=== PATIENT | female | born 1945 | race Caucasian/White ===

== ENCOUNTER 2019-01-17 19:44 | Inpatient (IN) ==
[2019-01-17 21:02] LABS: BASO% 0.6 % (0.0-0.8); HEMATOCRIT 35.2 % (37.0-47.0); HEMOGLOBIN 11.8 g/dL (12.0-16.0); IMM GRAN% 0.3 % (0.0-0.5); LYMPH# 1.87 X1000 (1.2-3.4); LYMPH% 27.3 % (20.5-51.1); MCH 27.8 PG (27-31); MCHC 33.5 g/dL (33-37); MONO# 0.65 X1000 (0.11-0.59); MONO% 9.5 % (1.7-9.3); MPV 8.6 FL (7.4-10.4); NEUT# 4.13 X1000 (1.4-6.5); NEUT% 60.3 % (42.2-75.2); PLT 286 X1000 (130-400); RBC 4.24 XMIL (4.2-5.4); WBC 6.85 X1000 (4.8-10.8)
[2019-01-17 21:03] LABS: BASO# 0.04 X1000 (0.0-0.2); EOS# 0.14 X1000 (0.0-0.7); IMM GRAN# 0.02 X1000 (0.0-0.04)
--- NOTE | 2019-01-17 21:29 | Diag Imaging Result Doc PS360 ---
EXAM: FLAT/UPRIGHT ABD/1 VIEW CHEST HISTORY: abd pain, NV TECHNIQUE: Flat and upright with chest, three views COMPARISON: Chest compared to 05/24/2018 FINDINGS: The lungs are well expanded. No pneumonia. No cardiomegaly. No free air beneath the diaphragm. No organomegaly. Aortic graft. No bowel obstruction. Degenerative bone spurring in the lumbar spine. IMPRESSION: No acute abnormality. Electronically signed by Martir Hernandez 01/17/2019 9:27 PM
[2019-01-17 21:31] LABS: ALBUMIN 4.3 g/dL (3.5-5.0); CALCIUM 8.8 mg/dL (8.8-10.2); CREATININE 2.6 mg/dL (0.5-0.9); POTASSIUM 4.8 mmol/L (3.5-5.1); TOTAL BILIRUBIN 0.24 mg/dL (0.20-1.00); TOTAL PROTEIN 6.6 g/dL (6.3-8.3)
[2019-01-17 21:32] LABS: ALB/GLOB RATIO 1.9; MAGNESIUM 1.5 mg/dL (1.5-2.7); PHOSPHORUS 4.1 mg/dL (2.7-4.5)
[2019-01-17 21:37] LABS: URINE SOURCE CLEAN CATCH
[2019-01-17 21:40] LABS: BILIRUBIN URINE NEGATIVE (NEGATIVE); BLOOD URINE NEGATIVE (NEGATIVE); COLOR YELLOW; GLUCOSE URINE NEGATIVE (NEGATIVE); KETONE URINE NEGATIVE (NEGATIVE); LEUKOCYTES URINE TRACE (NEGATIVE); NITRITE URINE NEGATIVE (NEGATIVE); PROTEIN URINE NEGATIVE (NEGATIVE); SP GRAVITY URINE 1.007; TURBIDITY URINE CLEAR (CLEAR); UROBILINOGEN URINE NORMAL (NORMAL)
[2019-01-17 21:41] LABS: UR EPITHELIAL CELLS <10 /HPF (<10); URINE BACTERIA NEGATIVE /HPF; URINE RBC <10 /HPF (<10); URINE WBC <10 /HPF (<10)
[2019-01-17] MEDS ORDERED: NS 1,000 ML IV ONE (22:35)
--- NOTE | 2019-01-17 22:40 | PROVIDER DOCUMENTATION ---
This chart was entered by Julieta Kang Scribe, acting as scribe for Wing Saunders CRNP. HPI-Abdominal Pain/GI Problem - General Chief Complaint: N/V/D Stated Complaint: BLOOD PRESSURE ISSUES Time Seen by Provider: 01/17/19 20:11 Source: patient Allergies/Adverse Reactions: Patient Allergies Allergy/AdvReac Type Severity Reaction Status Date / Time No Known Allergies Allergy Verified 01/17/19 21:57 Home Medications: Home Medication List Medication Instructions Recorded Confirmed Last Taken Type Fenofibrate 160 mg PO DAILY 01/18/16 05/19/18 Unknown History Hydrocodone Bit/Acetaminophen 1 each PO BID 01/18/16 05/19/18 Unknown History [Hydrocodon-Acetaminoph 7.5-325] ROSUVAstatin [Crestor] 20 mg PO DAILY 01/18/16 05/19/18 Unknown History Calcium Carbonate [Caltrate 600] 600 mg PO BID tablet 07/12/17 05/19/1805/18 Rx Ipratropium/Albuterol Sulfate 4 gm IH BID 05/19/18 05/19/18 05/18/18 History [Combivent Respimat 20-100 Mcg] Magnesium Oxide [Magnesium] 800 mg PO BID 05/19/18 05/19/18 05/18/18 History Alprazolam [Xanax] 0.25 mg PO Q6H PRN PRN 10 Days #20 05/24/18 Unknown Rx tab Amlodipine [Norvasc] 5 mg PO BID 30 Days #60 tab 05/24/18 Unknown Rx Aspirin 81 mg PO QAM chewtab 05/24/18 Unknown Rx Furosemide [Lasix] 80 mg PO BID 30 Days #60 tab 05/24/18 Unknown Rx Hydralazine [Apresoline] 50 mg PO TID 30 Days #90 tab 05/24/18 Unknown Rx Isosorbide Dinitrate [Isordil] 20 mg PO TID 30 Days #90 tab 05/24/18 Unknown Rx Labetalol [Trandate] 300 mg PO Q12H 30 Days #60 tab 05/24/18 Unknown Rx Pantoprazole Sodium [Protonix] 40 mg PO BID 30 Days #60 tablet. 05/24/18 U nknown Rx Promethazine [Phenergan] 12.5 mg [place] Q6H PRN PRN 10 Days #40 05/24/18 Unknown Rx supp Sucralfate [Carafate] 1 gm PO 4XDAY 30 Days #120 tab 05/24/18 Unknown Rx Hydrocodone/APAP 7.5 mg/325 mg 1 ea PO Q6H PRN PRN #14 tab 09/09/18 Unknown Rx [[place]-7.5] - History of Present Illness-ABD Nature of Presenting Problems: pt is 73/F presenting to ED w/ n/v w/ abd pain that has been frequent for the last 8 months. Pt sts that she lost her then and it has worsened since. She has had her BP medication upped as well recently and her PCP has taken her off of her PPI medications. Abdominal Pain Onset Location: reports: epigastric Pain Radiation: reports: no radiation Quality of Pain: reports: burning Severity in ED: reports: moderate Onset/Duration: reports: gradual Timing: reports: still present Activities at Onset: reports: none Exposure to sick contacts?: No Modifying Factors: improves with: nothing Associated Symptoms: reports: heartburn, nausea, vomiting Last BM: unsure Dark Stools Present?: reports: none noticed Rectal Bleeding: reports: none Rectal Pain: reports: none Emesis Description: reports: none Bruising or Bleeding Gums?: No Similar Symptoms Previously?: No Recently seen or treated by another doctor?: No Review of Systems - Adult - REVIEW OF SYSTEMS - ADULT Constitutional: reports: no symptoms reported. denies: chills, fever Eyes: reports: no symptoms reported Ears, Nose, Mouth & Throat: reports: no symptoms reported Cardiovascular: reports: no symptoms reported Respiratory: reports: no symptoms reported Gastrointestinal: reports: abdominal pain, nausea, vomiting. denies: diarrhea Genitourinary: reports: no symptoms reported Musculoskeletal: reports: no symptoms reported Integumentary: reports: no symptoms reported Neurological: reports: no symptoms reported. denies: dizziness/vertigo, headache/migraines Psychiatric: reports: no symptoms reported Endocrine: reports: no symptoms reported Hematologic/Lymphatic: reports: no symptoms reported Allergic/Immunologic: reports: no symptoms reported All Other Systems: Reviewed and Negative Past History - Adult - PAST MEDICAL HISTORY-ADULT Review of Records: reports: Old Records Reviewed, Nursing Assessment Review, Medications Reviewed, Social history reviewed & non-contributory. Major Childhood Illnesses: reports: denies history Cardiovascular: reports: HTN, hyperlipidemia Respiratory: reports: asthma Gastrointestinal: reports: denies history Obstetrical/Gynecological: reports: denies history Genitourinary: reports: denies history Musculoskeletal: reports: denies history Neurological: reports: denies history Psychiatric: reports: denies history Endocrine/Immune: reports: denies history Other Conditions: reports: denies history - PRIOR SURGERIES/PROCEDURES Surgical/Procedure History: reports: appendectomy, cholecystectomy, hysterectomy , orthopedic (extremity), other (AAA repair) - IMMUNIZATION STATUS Childhood Immunizations: See Nurse Assessment Flu Vaccine: See Nurse Assessment - FAMILY HISTORY Family History: reviewed, not pertinent - SOCIAL HISTORY Smoking: cigarettes, less than 1 pack/day Provider spent 3-5 mins advising pt. on dangers of tobacco.: Discussed manners to quit use, and f/u contacts for add'l counseling. Substance Use: none/never, none presently/history of abuse Alcohol Use Frequency: never Living Situation: family Physical Exam-General - PHYSICAL EXAM-ADULT Initial Vital Signs Reviewed: Yes - CONSTITUTIONAL General Appearance: appears well, alert, mild distress - EYES Eyes: PERRL/EOMI, pink conjunctivae - HEAD, EARS, NOSE, MOUTH & THROAT HENMT: normocephalic/atraumatic, moist mucous membranes, normal ENT inspection, TMs normal - NECK Neck: non-tender, full range of motion, supple, normal inspection - RESPIRATORY Respiratory: lungs clear - CARDIOVASCULAR Cardiovascular: regular rate, rhythm - GASTROINTESTINAL (ABDOMEN) Abdominal Exam: normal bowel sounds (Good bowel sounds), soft, tenderness (epigastric tenderness upon palpation) - MUSCULOSKELETAL Back Exam: normal inspection Extremity: normal range of motion, non-tender, normal gait, normal inspection - SKIN Integumentary: normal color, warm/dry - NEUROLOGIC Neurologic: grossly normal - PSYCHIATRIC Psych/Mental Status: normal mood/affect, normal thought content, normal thought process, oriented x 3 Progress - PLAN OF CARE/RESULTS Progress/Plan/Lab Results: Vital Signs - 8 hr 01/17/19 19:45 Temperature 97.8 F Pulse Rate 70 Respiratory Rate 16 Blood Pressure 142/78 O2 Sat by Pulse Oximetry 98 Orders Category Date Time Status flat [FLAT/UPRIGHT ABD/1 VIEW CHEST] [RAD] Stat Exams 01/17/19 20:34 Ordered CBC WITH ELECTRONIC DIFF [HEME] Stat Lab 01/17/19 20:34 Uncollected COMPREHENSIVE METABOLIC PANEL [CHEM] Stat Lab 01/17/19 20:34 Uncollected MAGNESIUM [CHEM] Stat Lab 01/17/19 20:34 Uncollected PHOSPHORUS [CHEM] Stat Lab 01/17/19 20:34 Uncollected UA NIMS W/REFLEX CULT [URINALYSIS] Stat Lab 01/17/19 20:35 Uncollected Result Diagrams: 01/17/19 20:52 01/17/19 20:52 - CONSULTS/PCP/HOSPITALIST Notification #1 *Consult/PCP/Hospitalist*: Dr Ch Time Discussed: 22:39 Reason/Comments: Dehydration, NVD Consult Disposition: Admit Departure - Departure Date of Disposition Decision: 01/17/19 Time of Disposition Decision: 22:40 DIAGNOSIS: Dehydration Nausea & vomiting Qualifiers: Vomiting type: unspecified Vomiting Intractability: unspecified Qualified Code(s): R11.2 - Nausea with vomiting, unspecified Disposition: ADMITTED INPATIENT 09 Certified Medical Emergency: Emergent Condition: Critical Referrals and Follow-Ups: Chavo Bliss MD [Primary Care Provider] - Discharge Education: Steps to Quit Smoking, Npax-or-Befz - Critical Care Note This patient required my direct & personal management of CC.: No Attestation - Physician/ BRANDON Attestation Patient care was provided by Advanced Practice Provider:: Yes Advanced Practice Provider:: Wing Saunders Advanced Practice Provider documentation review:: The Mid-level provider documentation, treatment plan and medical decision making was reviewed by the physician who agrees with all treatment and medical decision making by the P. The physician spent face to face time with patient:: No Advanced Practice Provider documentation review:: Supervising physician onsite and consulted in the evaluation and care of this patient. The physician did not have a face to face encounter with the patient. This chart was documented by the indicated scribe, (Julieta Kang Scribe) and accurately reflects the services I performed and decisions made by me, Wing Saunders CRNP, as attested by the provider's signature.
[2019-01-18] MEDS ORDERED: TYLENOL PO PRN (00:03)
[2019-01-18] MEDS ORDERED: ZOFRAN IV PRN (00:03)
[2019-01-18] MEDS: NS 1,000 ML IV SCH ×2 (00:52→15:31)
--- NOTE | 2019-01-18 02:34 | EKG Report ---
Test Performed on : 01/17/2019 10:28:47 PM Test Reason : cardiac history Blood Pressure : / mmHG Vent. Rate : 068 BPM Atrial Rate : 068 BPM P-R Int : 162 ms QRS Dur : 144 ms QT Int : 424 ms P-R-T Axes : 068 -39 033 degrees QTc Int : 450 ms Normal sinus rhythm. Left axis deviation Right bundle branch block Abnormal ECG When compared with ECG of 24-MAY-2018 07:08, No significant change was found Unconfirmed Result
[2019-01-18] MEDS ORDERED: G.I. COCKTAIL PO ONE ×2 (04:17→09:01)
[2019-01-18] MEDS: PRILOSEC PO SCH (06:07)
[2019-01-18 06:13] LABS: BASO# 0.04 X1000 (0.0-0.2); BASO% 0.5 % (0.0-0.8); EOS# 0.14 X1000 (0.0-0.7); EOS% 1.8 % (0.0-10.0); HEMATOCRIT 36.3 % (37.0-47.0); HEMOGLOBIN 12.1 g/dL (12.0-16.0); LYMPH# 1.26 X1000 (1.2-3.4); MCH 27.7 PG (27-31); MCHC 33.3 g/dL (33-37); MCV 83.1 FL (81-99); MONO# 0.42 X1000 (0.11-0.59); MONO% 5.3 % (1.7-9.3); NEUT# 6.03 X1000 (1.4-6.5); NEUT% 76.4 % (42.2-75.2); PLT 305 X1000 (130-400); RBC 4.37 XMIL (4.2-5.4); WBC 7.89 X1000 (4.8-10.8)
[2019-01-18 06:54] LABS: CALCIUM 9.2 mg/dL (8.8-10.2); CREATININE 1.9 mg/dL (0.5-0.9); MAGNESIUM 1.4 mg/dL (1.5-2.7); POTASSIUM 4.2 mmol/L (3.5-5.1)
--- NOTE | 2019-01-18 08:24 | HISTORY AND PHYSICAL ---
CHIEF COMPLAINT: Nausea, vomiting, diarrhea. HISTORY OF PRESENT ILLNESS: This is a 73-year-old female who comes in to the emergency room with nausea, vomiting and abdominal pain, has been frequent for the last 8 months. She stated the abdominal pain was a burning heartburn feeling but a gradual onset. Apparently she lost her in 05/2018 and states that it has been worse since that time. She also stated that her blood pressure has been increasing. Her PCP has increased her blood pressure medicine. Laboratory data was grossly normal in the ER. She will be admitted for further evaluation and treatment. PAST MEDICAL HISTORY: 1. Coronary artery disease, status post stenting. 2. Abdominal aortic aneurysm with an endograft. 3. CKD 3 with right renal atrophy, and I believe that she has solitary kidney function. 4. Hypertension. 5. Hyperlipidemia. PAST SURGICAL HISTORY: 1. Drug-eluting stent to the circumflex in 2008. 2. Hysterectomy. 3. Appendectomy. 4. Cholecystectomy. 5. AAA repair with endograft 2-1/2 years ago. SOCIAL HISTORY: in 05/2018. She is retired. One pack per day smoker for many years. No alcohol. No illicit drugs. FAMILY HISTORY: Denies any chronic family history and states there is no history of coronary artery disease in first degree relatives. ALLERGIES: No known drug allergies. HOME MEDICATIONS: Crestor 20 mg p.o. q.p.m., fenofibrate 160 mg p.o. daily, Combivent Respimat 20/100 mcg 4 g inhalation b.i.d., magnesium oxide 800 mg p.o. b.i.d., amlodipine 5 mg p.o. b.i.d., hydralazine 50 mg p.o. t.i.d., Isordil 20 mg p.o. t.i.d., [place] 7.5 one q.6 p.r.n., carvedilol 25 mg 1 p.o. b.i.d., clonidine 0.1 mg 1 p.o. b.i.d., Centrum Silver 1 p.o. daily, benazepril 20 mg 1 p.o. b.i.d., vitamin B12 1000 mcg 1 p.o. daily, Lasix 40 mg p.o. p.r.n. REVIEW OF SYSTEMS: A 14-point review of systems was conducted with the patient. Pertinent positives listed above in the HPI. All other systems reviewed and found to be negative. PHYSICAL EXAMINATION: VITAL SIGNS: Temperature 98, pulse 71, respirations 19, blood pressure 170/93, oxygen saturation 100% on room air. GENERAL: This is a 73-year-old female lying on the ER stretcher, answers all questions appropriately. She is alert and oriented x3, in no acute distress at this time. HEENT: Head is atraumatic and normocephalic. Pupils are equal, round and reactive to light. Extraocular eye movements intact. Sclerae anicteric. Conjunctivae is pink. Oral mucosa is dry. NECK: Supple. No JVD. No thyromegaly. Trachea is midline. No cervical lymphadenopathy. CARDIAC: S1 and S2 appreciated. No murmurs, rubs or gallops. LUNGS: Wheezing noted on expiratory. Mild crepitations noted in bilateral bases. No rhonchi. Symmetric rise and fall with respirations. ABDOMEN: Soft, nondistended. Diffusely tender. Bowel sounds present in all 4 quadrants and normoactive. No pulsatile mass. No organomegaly. EXTREMITIES: No clubbing or cyanosis. There is 1+ nonpitting edema to bilateral lower extremities. There are 2+ pedal pulses bilaterally. GENITOURINARY: No bladder distention. The patient voids. Otherwise deferred. NEUROLOGICAL: Alert and oriented x3. Cranial nerves II through XII grossly intact. DIAGNOSTIC DATA: EKG is normal sinus rhythm, left axis deviation, right bundle branch block, no changes from previous EKG. WBC is 6.85, hemoglobin 11.8, hematocrit 35.2, platelet count 286. Sodium is 141, potassium 4.8, chloride 114, carbon dioxide 15, BUN is 53, creatinine 0.6, glucose 82. Urine unremarkable. Abdominal x-ray with no acute abnormality. ASSESSMENT AND PLAN: 1. Nausea, vomiting and diarrhea. The patient has been suffering with this over the last 8 months since her . Could be stress related. We will give Zofran as needed for vomiting. Consult GI. 2. Abdominal pain. See above. We will give GI cocktail. 3. Hypertension. Continue the patient's home medication. 4. Acute kidney injury on chronic kidney disease stage 3. Gentle fluid hydration at 75 mL an hour. I believe she received a liter bolus in the emergency room. 5. History of coronary artery disease. Trend cardiac enzymes. I do not believe this is cardiac in nature but will monitor. Further recommendations based on the patient's clinical course. Dictated by KARIS Simpson for Pee Ch MD I have performed a face to face diagnostic evaluation. Labs/ Xrays- reviewed, Exam- Chest- clear, CV- regular. A/P- N/V/D- Abd Pain- Admit, supportive care, IV fluids, antiemetics, GI consult. Dr. Ch cc: KARIS Simpson MD [facility]
[2019-01-18] MEDS: ISORDIL PO SCH ×3 (08:31→20:23)
[2019-01-18] MEDS: NORVASC PO SCH ×2 (08:32→20:24)
[2019-01-18] MEDS: VITAMIN B-12 PO SCH (08:32)
[2019-01-18] MEDS: APRESOLINE PO SCH ×3 (08:32→20:24)
[2019-01-18] MEDS: COREG PO SCH ×2 (08:32→20:23)
[2019-01-18] MEDS: CATAPRES PO SCH ×2 (08:32→20:23)
[2019-01-18] MEDS: LOFIBRA PO SCH (08:32)
[2019-01-18] MEDS: CENTRUM SILVER PO SCH (08:32)
[2019-01-18] MEDS ORDERED: COMBIVENT RESPIMAT INHALER INH SCH (09:00)
[2019-01-18] MEDS ORDERED: LOTENSIN PO SCH (09:00)
[2019-01-18] MEDS ORDERED: MAG-OX PO SCH (09:00)
--- NOTE | 2019-01-18 10:50 | PROGRESS NOTE ---
DATE: 01/18/2019 SUBJECTIVE: The patient reports heartburn, and she requested another GI cocktail this morning. Since then, she is feeling fine. She is not having diarrhea. She is having abdominal pain on and off but mild abdominal pain. OBJECTIVE: Vital Signs: Temperature 98.3 degrees, heart rate 81, respiratory rate 18, blood pressure 123/94, O2 saturation 99% on room air. General: This is a 73-year-old female lying in bed, in no acute distress. Cardiovascular: S1 and S2 heard. No murmurs, gallops, or rubs. Regular rate and rhythm. Respiratory: Clear bilaterally to auscultation. No work of breathing or using accessory muscles. Abdomen: Soft, a little bit distended, but nontender to palpation. Bowel sounds present. No organomegaly. Extremities: No clubbing, cyanosis, or edema. Peripheral pulses present in both legs. Neurological: The patient is alert oriented x3. Moves 4 extremities. LABORATORY DATA: Reviewed. ASSESSMENT AND PLAN: 1. Intractable nausea and vomiting/abdominal pain. The patient reports having this problem since her 8 months ago. I think it is stress related. In any case, since admission, GI has been consulted. She reports weight loss of 10 pound during the last month, unintentionally, because she said that her appetite was low. In any case, considering her age, I prefer to go ahead and do a CT of the abdomen and pelvis to see if there is any problem with the GI tract that we can check from outside. At this point, we will continue with omeprazole 40 mg p.o. daily. Now, she is able to take p.o. medications. 2. Uncontrolled hypertension. Blood pressure has been almost 200 over the last night, most likely because she was not able to take her blood pressure medications. At this point, we will continue to monitor. Blood pressure is 170s. We will continue with the same management. 3. Acute on chronic kidney disease stage 3. We will continue with IV fluids and keep checking BMP daily. 4. History of coronary artery disease. Not complaining of any chest pain. The patient is stable. We will continue to monitor. cc: Randall Ziegler MD
--- NOTE | 2019-01-18 11:11 | GASTROENTEROLOGY CONSULTATION ---
DATE: 01/18/2019 REASON FOR CONSULTATION: Diarrhea. HISTORY OF PRESENT ILLNESS: Ms. Mariia Guerra is a 73-year-old woman with a past medical history of hypertension, hyperlipidemia, CAD status post stent, prior AAA repair, CKD stage 3, history of colonic polyps, who presents with worsening diarrhea over the last 4 to 6 weeks. The patient reports having intermittent watery diarrhea that is postprandial, with associated chest burning from her chest down to her periumbilical area. She says that about 45 minutes after taking anything p.o., she will develop diarrhea. She denies any rectal bleeding. She has lost 10 pounds over the last 6 weeks. No dysphagia or vomiting. Positive lightheadedness and nausea. She denies any recent travel, antibiotics, new medications, or sick contacts. She has been on magnesium oxide for last year. She had a Cologuard that was done in October of this year was negative, per her report. Her last colonoscopy was 5 years ago. REVIEW OF SYSTEMS: As per HPI, otherwise 12-point review of systems is negative. PAST MEDICAL HISTORY: As per HPI. PAST SURGICAL HISTORY: She had a hysterectomy, appendectomy, cholecystectomy, AAA repair with endograft about 2-1/2 years ago, wrist fracture repair. SOCIAL HISTORY: She is a smoker. No alcohol or drug use. She lives alone. Her in 05/2018. FAMILY HISTORY: No family history of GI malignancies. ALLERGIES: No known drug allergies. HOME MEDICATIONS: Include Crestor, fenofibrate, Combivent, magnesium oxide, amlodipine, hydralazine, Isordil, [place], Coreg, clonidine, Centrum, benazepril, vitamin B12, and Lasix. PHYSICAL EXAMINATION: Vital Signs: Temperature is 98.3 degrees, heart rate of 81, respiratory rate 16, blood pressure 173/94, O2 saturation 99% on room air. General: The patient is awake, alert, and oriented, in no acute distress. HEENT: Sclerae anicteric. Moist mucous membranes. Extraocular movements intact. Neck: Supple. No JVD or lymphadenopathy. Cardiac: Regular rate and rhythm. No murmurs. Lungs: Clear to auscultation bilaterally. No wheezing. Abdomen: Soft, nontender, nondistended. Normoactive bowel sounds. No rebound or guarding. Extremities: No clubbing, cyanosis, or edema. Neurologic: Nonfocal. IMAGING AND LABORATORY DATA: White count of 7.8, hemoglobin is 12.1, MCV of 83.1, platelets of 205,000. Sodium 143, potassium 4.2, chloride of 117, bicarb 14, BUN of 46, creatinine of 1.9 from 2.6 yesterday. LFTs are unrevealing. Magnesium 1.4. Calcium 9.2. CK of 56. Troponin negative x1. TSH within normal limits. UA shows trace leukocytes. Abdominal x-ray shows no acute abnormalities. No stool studies or blood cultures. ASSESSMENT AND PLAN: Ms. Mariia Guerra is a 73-year-old woman with past medical history of coronary artery disease and hypertension, who presents with 4 to 6 weeks of diarrhea. She also reports some chest burning, radiating down to her periumbilical area. No vomiting or dysphagia. She does take magnesium oxide for the last year, which can act as a laxative. Will hold magnesium for now. She has not had any stool studies. Will check Clostridium difficile, ova and parasites, stool, Giardia, culture. If diarrhea persists and stool studies are negative, then the patient will need diagnostic esophagogastroduodenoscopy and colonoscopy. She is okay to have clear liquids and advance diet for now. Continue proton pump inhibitor for chest burning, antiemetics as needed for nausea, and her home blood pressure medications for hypertension. # Diarrhea # Chest pain/abdominal pain # Weight loss # History of CAD Thank you for this consult. Will follow with you. Please call with any questions or concerns. YULIANA
[2019-01-18] MEDS: LEXAPRO PO SCH (12:03)
[2019-01-18] MEDS: NORCO-7.5 PO PRN (20:30)
[2019-01-18] MEDS ORDERED: CRESTOR PO SCH (21:00)
[2019-01-19] MEDS: NS 1,000 ML IV SCH (06:53)
[2019-01-19] MEDS: PRILOSEC PO SCH (06:54)
[2019-01-19 07:30] LABS: BASO# 0.06 X1000 (0.0-0.2); BASO% 1.2 % (0.0-0.8); EOS# 0.23 X1000 (0.0-0.7); EOS% 4.5 % (0.0-10.0); HEMATOCRIT 33.7 % (37.0-47.0); HEMOGLOBIN 11.1 g/dL (12.0-16.0); LYMPH# 1.79 X1000 (1.2-3.4); MCH 27.9 PG (27-31); MCHC 32.9 g/dL (33-37); MCV 84.7 FL (81-99); MONO# 0.47 X1000 (0.11-0.59); MONO% 9.2 % (1.7-9.3); NEUT# 2.57 X1000 (1.4-6.5); NEUT% 50.1 % (42.2-75.2); PLT 269 X1000 (130-400); RBC 3.98 XMIL (4.2-5.4); WBC 5.12 X1000 (4.8-10.8)
[2019-01-19] MEDS ORDERED: DUONEB (A & A) INH SCH (08:00)
[2019-01-19 08:06] VITALS: BP 160/83
[2019-01-19] MEDS: CENTRUM SILVER PO SCH (08:17)
[2019-01-19] MEDS: NORCO-7.5 PO PRN (08:17)
[2019-01-19] MEDS: NORVASC PO SCH (08:18)
[2019-01-19] MEDS: LEXAPRO PO SCH (08:18)
[2019-01-19] MEDS: VITAMIN B-12 PO SCH (08:18)
[2019-01-19] MEDS: COREG PO SCH (08:18)
[2019-01-19] MEDS: CATAPRES PO SCH (08:18)
[2019-01-19] MEDS: APRESOLINE PO SCH (08:18)
[2019-01-19] MEDS: LOFIBRA PO SCH (08:18)
[2019-01-19] MEDS: ISORDIL PO SCH (08:18)
[2019-01-19 08:19] LABS: ALBUMIN 3.5 g/dL (3.5-5.0); CALCIUM 8.7 mg/dL (8.8-10.2); PHOSPHORUS 3.1 mg/dL (2.7-4.5); POTASSIUM 4.4 mmol/L (3.5-5.1)
--- NOTE | 2019-01-19 11:15 | GASTROENTEROLOGY PROGRESS NOTE ---
DATE: 01/19/2019 SUBJECTIVE: The patient is resting in bed. She is feeling better. She denies any nausea or vomiting. Her bowel movements have improved. She has had no bowel movement this morning. In fact, she had two bowel movements yesterday which were liquid brown. OBJECTIVE: Vital Signs: Temperature of 98.1 degrees, pulse rate of 60, respiratory rate of 16, blood pressure 160/83, saturating 98% on room air. Body weight of 151 pounds and 4 ounces. BMI 26 kg/m2. General Appearance: Moderately built, moderately nourished, lying in bed, in no acute distress. HEENT: Pale conjunctivae. No icterus. Pupils equal, reactive to light. Neck: Supple. Abdomen: Soft, nontender, nondistended. No guarding or rebound. Extremities: No cyanosis, clubbing. She has a brace on her left wrist. Neurologic: She is alert, awake, oriented x3. LABS: Hemoglobin and hematocrit are 11.1 and 33.7, white count of 5.12, platelet count of 269,000. Sodium 139, potassium 4.4, chloride 117, bicarb of 15, anion gap of 7, BUN of 38, creatinine of 2, glucose of 95, calcium is 8.7, magnesium 1.4. AST 18, ALT 9, alkaline phosphatase 40, total protein is 6.6, albumin of 4.3. TSH of 2.96. Urinalysis is showing trace leukocytes. Stool culture is showing no enteric pathogens. C. difficile toxin and antigen are negative. Giardia and Cryptosporidium stool antigen are negative. Ova and parasites currently pending. Abdominal x-ray done showed no acute abnormality. No bowel obstruction noted. There was evidence of aortic graft, degenerative bone spurring in the lumbar spine. Going back to the abdominal ultrasound done in 2013, this was ordered per Dr. Orosco, she was found abdominal aortic aneurysm measuring 3.7 cm and right renal atrophy and hepatic steatosis. IMPRESSION AND PLAN: 1. Diarrhea, is improving. Stool studies are negative so far. We will follow on ova and parasites. 2. Abdominal discomfort, which is improving. 3. Chest pain, which is improving. 4. History of coronary artery disease. Aware. 5. History of aortic aneurysm, has aortic graft. Aware. 6. Hypertension. Aware. 7. Weight loss. Aware. 8. Anemia. She will need outpatient esophagogastroduodenoscopy and colonoscopy for further workup of anemia. 9. Gastrointestinal prophylaxis with Prilosec once daily. The patient was counseled to avoid any nonsteroidal anti-inflammatory drugs. She will continue a multivitamin once daily. 10. I will start her on Culturelle 1 capsule by mouth twice a day. Her last colonoscopy was done 5 years ago at [facility]. We will try to obtain the records. The patient is to follow up in the clinic after discharge. At that time, we will plan for doing an esophagogastroduodenoscopy and colonoscopy as an outpatient. The above plans were discussed with the patient. All questions were answered. Please call us with any further questions. Also, I have reviewed her old records. She had an esophagogastroduodenoscopy and colonoscopy done with Dr. Orosco, it sounds like from the records in 2013, which showed evidence of chronic inactive gastritis, patchy, into the esophagus, and a tubular adenoma in the large intestine, and hyperplastic polyps in the colon. Since the patient has seen Dr. Orosco in the past, we will sign out the patient Dr. Orosco today. 11. Further recommendations pending hospital course. cc: MD Chavo Botello MD Khurshid Yousuf, MD Cesar Garcia-Rodriguez, MD
--- NOTE | 2019-01-19 15:39 | DISCHARGE SUMMARY ---
ADMISSION DATE: 01/17/2019 DISCHARGE DATE: 01/19/2019 ADMISSION DIAGNOSIS: 1. Nausea, vomiting, diarrhea. 2. Abdominal pain. 3. Hypertension. 4. Acute kidney injury on chronic kidney disease stage 3. 5. History of coronary artery disease. DISCHARGE DIAGNOSIS: 1. Intractable nausea, vomiting and abdominal pain. 2. Uncontrolled hypertension. 3. Acute on kidney disease stage 3. 4. History of coronary artery disease. CONSULTATIONS: Gastroenterology, Dr. Lawson. Mag-Ox was held, he checked stool culture and gave her clear liquids and advanced felt like if she needed to have an outpatient EGD or colonoscopy she could if she continued to have diarrhea. SURGERIES PROCEDURES: None. HOSPITAL COURSE: Ms. Mariia Guerra is a 73-year-old female presented to the emergency department with nausea, vomiting, abdominal pain, some diarrhea apparently been frequent for last 8 months. She stated abdominal pain burning and felt like heartburn gradual onset. She lost her May 2018 that is when the symptoms started and got worse and her blood pressure also been increasing as well. Her primary increased her blood pressure medications but apparently did not help so Zofran was ordered, GI was consulted. His recommendations are above underneath his consult. Was given GI cocktail. She was hydrated for acute kidney injury and there was no cardiac chest pain, C difficile was negative, there was nothing in stool far as bacterial cultures and parasite cultures. Vitals remained stable. She is going to be discharged home. DISCHARGE VITAL SIGNS: Temperature 98.1 degrees, heart rate 63, respiratory 20, blood pressure 160/83, O2 saturation 98% on room air. LAB DATA: White blood cells 5000, hemoglobin 11, hematocrit 33, platelet count 269,000, sodium 139, potassium 4.4, BUN is 38, creatinine 2.0, glucose was 95, calcium 8.7, phosphorus 3.1. Cardiac enzymes were negative. TSH was 2.96. Urinalysis with trace leukocytes. PERTINENT IMAGING: Abdominal x-ray on the no acute findings. EKG on the normal sinus rhythm, rate 68, QTc 450. DIET: GI soft. ACTIVITY: As tolerated. PHYSICIAN FOLLOWUP: Dr. Lawson in about 2 to 3 weeks for outpatient endoscopy schedule and then will need to follow with primary care provider Chavo Bliss. DISCHARGE INSTRUCTIONS: If your condition changes contact physician and/or to return to the emergency department, changes may include but not limited to shortness of breath, increased fatigue, excessive bleeding, unexplained weight loss or gain, unmanageable pain, signs or symptoms of infection. DISCHARGE MEDICATIONS: 1. Amlodipine 5 mg p.o. twice a day. 2. Coreg 25 mg p.o. twice a day. 3. Clonidine 1 tab p.o. twice a day. 4. Vitamin B12 1000 mcg p.o. daily. 5. Lexapro 10 mg p.o. daily. 6. Fenofibrate 160 mg p.o. daily. 7. Hydralazine 50 mg p.o. t.i.d. 8. [place] 7.5 one tab p.o. every 6 hours p.r.n. 9. Isosorbide dinitrate 20 mg p.o. t.i.d. 10. Centrum Silver daily. 11. Crestor 20 mg p.o. nightly. 12. Benazepril 20 mg p.o. twice daily. 13. Lasix 40 mg p.o. p.r.n. for swelling. 14. Respimat 20/100 mcg inhaled twice a day. 15. Magnesium oxide 800 mg p.o. twice daily. 16. Protonix 40 mg p.o. daily. DISCHARGE DISPOSITION: Home. Dictated by KARIS Person for Randall Ziegler MD Addendum: Patient seen and examined by myself. Agree with KARIS note. It reflects my assessment and plan. Patient is being discharged in stable condition to home and will be seen by GI in a week or two. cc: KARIS Person MD [facility]
[2019-01-19] MEDS ORDERED: CULTURELLE PO SCH (21:00)
== END 2019-01-19 14:00 | disposition home or self-care (01) | DRG 392 ==
LOC: 1N 19:44 → ED 19:44 → SUATTDRO 23:53 → OBSVTOIN 23:53
PROVIDERS: ATTEND Internal Medicine